=== PATIENT | female | born 1940 | race Caucasian/White ===

== ENCOUNTER 2019-12-20 12:58 | Inpatient (IN) | payer BC ==
[~2019-12-20] VITALS: Ht 157.5 cm; Wt 54.9 kg
[2019-12-20 14:08] LABS: BASOPHILS # (AUTO) 0.1 K/uL (0.0-8.0); BASOPHILS % (AUTO) 1.1 % (0.0-2.0); EOSINOPHILS # (AUTO) 0.1 K/uL (0.0-0.7); EOSINOPHILS % (AUTO) 0.6 % (0.0-7.0); HEMATOCRIT 45.7 % (31.2-41.9); HEMOGLOBIN 15.3 g/dL (10.9-14.3); LYMPHOCYTES # (AUTO) 2.2 K/uL (20.0-40.0); LYMPHOCYTES % (AUTO) 25.7 % (20.5-51.5); MEAN CORPUSCULAR HEMOGLOBIN 27.7 uug (24.7-32.8); MEAN CORPUSCULAR HGB CONC 34 g/dL (32.3-35.6); MEAN CORPUSCULAR VOLUME 82.5 fL (75.5-95.3); MONOCYTES # (AUTO) 0.6 K/uL (2.0-10.0); MONOCYTES % (AUTO) 7.6 % (0.0-11.0); NEUTROPHILS # (AUTO) 5.5 K/uL (1.8-8.9); PLATELET COUNT (AUTO) 257 K/uL (179-408); RED BLOOD CELL COUNT(AUTO) 5.54 MIL/uL (3.63-4.92); WHITE BLOOD COUNT (AUTO) 8.4 K/uL (3.8-11.8)
[2019-12-20 14:10] LABS: *BILIRUBIN,URIN NEGATIVE (NEGATIVE); *BLOOD, URINE 1+ (NEGATIVE); *CLARITY,URINE CLOUDY (CLEAR); *COLOR,URINE YELLOW (YELLOW); *KETONES,URINE NEGATIVE (NEGATIVE); *UROBILINOGEN,URINE 0.2 E.U./dl (NORMAL); LEUKOCYTE ESTERASE ,URINE 3+ (NEGATIVE); NITRITE, URINE POSITIVE (NEGATIVE); UGLUCOSE NEGATIVE (NEGATIVE)
[2019-12-20 14:19] LABS: CARBON DIOXIDE 27 mmol/L (21-32); CHLORIDE 101 mmol/L (98-107); GLUCOSE 92 mg/dL (74-106); POTASSIUM 3.7 mmol/L (3.5-5.1); UREA NITROGEN, BLOOD 18 mg/dL (7-18)
[2019-12-20 14:22] LABS: ETHANOL 3 MG/DL (0-0)
[2019-12-20 14:23] LABS: BACTERIA,URINE 4+ /HPF (NONE SEEN); SQUAMOUS EPITHELIAL CELL,UR FEW /HPF (NONE SEEN); WBC,URINE 80-100 /HPF (0-3)
[2019-12-20 14:25] LABS: ACETAMINOPHEN < 10.0 ug/mL (10-30); ALANINE AMINOTRANSFERASE 53 U/L (14-59); ALKALINE PHOSPHATASE 98 U/L (50-136); ASPARTATE AMINOTRANSFERASE 39 U/L (15-37); BILIRUBIN,DIRECT 0.2 mg/dL (0.0-0.2); BILIRUBIN,TOTAL 0.8 mg/dL (0.2-1.0); TOTAL PROTEIN, SERUM 7.5 g/dL (6.4-8.2)
[2019-12-20 15:18] LABS: THYROID STIMULATING HORMONE 0.576 mIU/mL (0.358-3.740)
[2019-12-20] MEDS ORDERED: QUETIAPINE FUMARATE 25 MG TABLET PO PRN (18:45)
[2019-12-20] MEDS ORDERED: ZIPRASIDONE MESYLATE 20 MG VIAL IM PRN (18:47)
[2019-12-20] MEDS ORDERED: MORPHINE SULFATE 2 MG/1 ML DISP.SYRIN IV PRN (19:00)
[2019-12-20] MEDS ORDERED: ONDANSETRON 4 MG/2 ML VIAL IV PRN (19:00)
[2019-12-20] MEDS ORDERED: ACETAMINOPHEN 325 MG TABLET PO PRN (19:00)
[2019-12-20] MEDS ORDERED: LORAZEPAM 2 MG/1 ML VIAL IV PRN (20:15)
[2019-12-20 20:30] VITALS: BP 135/63
[2019-12-20] MEDS: PREGABALIN 25 MG CAPSULE PO SCH (20:45)
[2019-12-20] MEDS ORDERED: ATORVASTATIN 40 MG TABLET PO SCH (21:00)
[2019-12-20] MEDS ORDERED: CEFTRIAXONE /D5W 50ML IVPB **ER PYXIS IV ONE (21:35)
[2019-12-20] MEDS: CEFTRIAXONE 1 G in IV DEXTROSE 5% 50 ML IV SCH (21:41)
[2019-12-20 22:37] LABS: *AMPHETAMINE, URINE NEGATIVE (NEGATIVE); *BARBITURATE, URINE NEGATIVE (NEGATIVE); *CANNABINOID, URINE NEGATIVE (NEGATIVE); *COCCAINE, URINE NEGATIVE (NEGATIVE); *OPIATE, URINE NEGATIVE (NEGATIVE); *PHENCYCLIDINE SCREEN,URINE NEGATIVE (NEGATIVE)
[2019-12-21 04:00] VITALS: BP 135/66
[2019-12-21 06:27] LABS: BASOPHILS % (AUTO) 0.8 % (0.0-2.0); EOSINOPHILS # (AUTO) 0.1 K/uL (0.0-0.7); EOSINOPHILS % (AUTO) 2.3 % (0.0-7.0); HEMATOCRIT 42.6 % (31.2-41.9); HEMOGLOBIN 14.2 g/dL (10.9-14.3); LYMPHOCYTES # (AUTO) 1.9 K/uL (20.0-40.0); MEAN CORPUSCULAR HEMOGLOBIN 27.7 uug (24.7-32.8); MEAN CORPUSCULAR HGB CONC 33 g/dL (32.3-35.6); MEAN CORPUSCULAR VOLUME 83.1 fL (75.5-95.3); MONOCYTES # (AUTO) 0.5 K/uL (2.0-10.0); MONOCYTES % (AUTO) 8.7 % (0.0-11.0); NEUTROPHILS # (AUTO) 3.2 K/uL (1.8-8.9); NEUTROPHILS % (AUTO) 55.2 % (38.5-71.5); PLATELET COUNT (AUTO) 260 K/uL (179-408); RED BLOOD CELL COUNT(AUTO) 5.13 MIL/uL (3.63-4.92); WHITE BLOOD COUNT (AUTO) 5.7 K/uL (3.8-11.8)
[2019-12-21 06:37] LABS: BILIRUBIN,TOTAL 0.7 mg/dL (0.2-1.0); PHOSPHOROUS 3.7 mg/dL (2.5-4.9); TOTAL PROTEIN, SERUM 6.7 g/dL (6.4-8.2)
[2019-12-21 06:46] LABS: THYROID STIMULATING HORMONE 0.635 mIU/mL (0.358-3.740)
[2019-12-21 07:46] VITALS: BP 121/50
[2019-12-21] MEDS: PANTOPRAZOLE SODIUM 40 MG TABLET.DR PO SCH (07:54)
[2019-12-21] MEDS: ASPIRIN EC 81 MG TABLET.DR PO SCH (08:00)
[2019-12-21] MEDS: CHOLECALCIFEROL 1,000 UNIT TABLET PO SCH (08:00)
[2019-12-21] MEDS: NYSTATIN POWDER 15 GM BOTTLE TP SCH ×2 (08:00→17:21)
[2019-12-21] MEDS: METOPROLOL TARTRATE 25 MG TABLET PO SCH ×2 (08:00→17:20)
[2019-12-21] MEDS: PREGABALIN 25 MG CAPSULE PO SCH ×2 (08:41→17:20)
[2019-12-21 11:44] VITALS: BP 107/56
[2019-12-21 16:46] VITALS: BP 149/80
[2019-12-21] MEDS: TRAZODONE 50 MG TABLET PO SCH (17:03)
[2019-12-21 21:14] VITALS: BP 109/52
[2019-12-21] MEDS: ATORVASTATIN 20 MG TABLET PO SCH (22:02)
[2019-12-21] MEDS: CEFTRIAXONE 1 G in IV DEXTROSE 5% 50 ML IV SCH (23:41)
[2019-12-22 04:00] VITALS: BP 119/58
[2019-12-22] MEDS: PANTOPRAZOLE SODIUM 40 MG TABLET.DR PO SCH (06:32)
[2019-12-22] MEDS: ASPIRIN EC 81 MG TABLET.DR PO SCH (08:27)
[2019-12-22] MEDS: CHOLECALCIFEROL 1,000 UNIT TABLET PO SCH (08:27)
[2019-12-22] MEDS: METOPROLOL TARTRATE 25 MG TABLET PO SCH ×2 (08:27→17:10)
[2019-12-22] MEDS: NYSTATIN POWDER 15 GM BOTTLE TP SCH ×2 (08:30→17:02)
[2019-12-22] MEDS: PREGABALIN 25 MG CAPSULE PO SCH ×2 (10:18→17:03)
[2019-12-22] MEDS: TRAZODONE 50 MG TABLET PO SCH (17:06)
[2019-12-22] MEDS: CEphaleXIN 500 MG CAPSULE PO SCH ×2 (18:29→22:36)
[2019-12-22 19:35] VITALS: BP 121/63
[2019-12-22] MEDS: ATORVASTATIN 20 MG TABLET PO SCH (20:54)
[2019-12-22] MEDS: ACYCLOVIR 200 MG CAPSULE PO SCH (20:54)
[2019-12-23 04:00] VITALS: BP 126/67
[2019-12-23] MEDS: CEphaleXIN 500 MG CAPSULE PO SCH ×3 (05:21→22:46)
[2019-12-23] MEDS: PANTOPRAZOLE SODIUM 40 MG TABLET.DR PO SCH (06:40)
[2019-12-23] MEDS: ACYCLOVIR 200 MG CAPSULE PO SCH ×5 (06:40→20:23)
[2019-12-23 07:12] LABS: BASOPHILS # (AUTO) 0.1 K/uL (0.0-8.0); BASOPHILS % (AUTO) 0.9 % (0.0-2.0); EOSINOPHILS # (AUTO) 0.1 K/uL (0.0-0.7); EOSINOPHILS % (AUTO) 2.4 % (0.0-7.0); HEMATOCRIT 44.3 % (31.2-41.9); HEMOGLOBIN 14.7 g/dL (10.9-14.3); LYMPHOCYTES # (AUTO) 2.2 K/uL (20.0-40.0); LYMPHOCYTES % (AUTO) 36.4 % (20.5-51.5); MEAN CORPUSCULAR HGB CONC 33 g/dL (32.3-35.6); MEAN CORPUSCULAR VOLUME 84.4 fL (75.5-95.3); MONOCYTES # (AUTO) 0.4 K/uL (2.0-10.0); MONOCYTES % (AUTO) 6.8 % (0.0-11.0); NEUTROPHILS # (AUTO) 3.3 K/uL (1.8-8.9); NEUTROPHILS % (AUTO) 53.5 % (38.5-71.5); PLATELET COUNT (AUTO) 256 K/uL (179-408); RED BLOOD CELL COUNT(AUTO) 5.26 MIL/uL (3.63-4.92); WHITE BLOOD COUNT (AUTO) 6.1 K/uL (3.8-11.8)
[2019-12-23 07:20] LABS: MAGNESIUM 1.8 mg/dL (1.8-2.4); PHOSPHOROUS 3.3 mg/dL (2.5-4.9); POTASSIUM 4.1 mmol/L (3.5-5.1)
[2019-12-23 07:30] VITALS: BP 133/64
[2019-12-23] MEDS: ASPIRIN EC 81 MG TABLET.DR PO SCH (08:14)
[2019-12-23] MEDS: PREGABALIN 25 MG CAPSULE PO SCH ×2 (08:14→16:58)
[2019-12-23] MEDS: CHOLECALCIFEROL 1,000 UNIT TABLET PO SCH (08:14)
[2019-12-23] MEDS: NYSTATIN POWDER 15 GM BOTTLE TP SCH ×2 (08:15→17:15)
[2019-12-23] MEDS: METOPROLOL TARTRATE 25 MG TABLET PO SCH ×2 (08:24→16:58)
[2019-12-23] MEDS: MEMANTINE HCL 5 MG TABLET PO SCH ×2 (09:55→20:13)
[2019-12-23] MEDS: QUETIAPINE FUMARATE 25 MG TABLET PO SCH ×2 (09:56→20:13)
[2019-12-23 15:46] VITALS: BP 147/73
[2019-12-23] MEDS: TRAZODONE 50 MG TABLET PO SCH (17:29)
[2019-12-23 20:00] VITALS: BP 133/59
[2019-12-23] MEDS: ATORVASTATIN 20 MG TABLET PO SCH (20:13)
[2019-12-24 04:00] VITALS: BP 116/77
[2019-12-24] MEDS: CEphaleXIN 500 MG CAPSULE PO SCH ×2 (05:30→15:15)
[2019-12-24] MEDS: ACYCLOVIR 200 MG CAPSULE PO SCH ×3 (05:36→15:15)
[2019-12-24] MEDS: PANTOPRAZOLE SODIUM 40 MG TABLET.DR PO SCH (06:16)
[2019-12-24 07:43] VITALS: BP 116/52
[2019-12-24] MEDS: CHOLECALCIFEROL 1,000 UNIT TABLET PO SCH (09:03)
[2019-12-24] MEDS: MEMANTINE HCL 5 MG TABLET PO SCH (09:05)
[2019-12-24] MEDS: PREGABALIN 25 MG CAPSULE PO SCH (09:05)
[2019-12-24] MEDS: QUETIAPINE FUMARATE 25 MG TABLET PO SCH (09:05)
[2019-12-24] MEDS: ASPIRIN EC 81 MG TABLET.DR PO SCH (09:05)
[2019-12-24] MEDS: METOPROLOL TARTRATE 25 MG TABLET PO SCH (09:06)
[2019-12-24] MEDS: NYSTATIN POWDER 15 GM BOTTLE TP SCH (09:06)
[2019-12-24 12:00] VITALS: BP 118/63
[2019-12-24 15:26] VITALS: BP 136/64
== END 2019-12-24 16:50 | DRG 689 ==
LOC: ER 12:58 → MEDSURG3 20:02 → TELE3 12-21 02:31 → MEDSURG3 12-21 10:30
PROVIDERS: ADMIT Internal Medicine; ATTEND Internal Medicine
DX: N39.0 Urinary tract infection, site not specified (principal); G92 Toxic encephalopathy; F03.91 Unspecified dementia, unspecified severity, with behavioral disturbance; I25.2 Old myocardial infarction; I25.10 Atherosclerotic heart disease of native coronary artery without angina pectoris; M81.0 Age-related osteoporosis without current pathological fracture; M19.90 Unspecified osteoarthritis, unspecified site; Z87.891 Personal history of nicotine dependence; R73.03 Prediabetes; B02.9 Zoster without complications; E78.5 Hyperlipidemia, unspecified; F29 Unspecified psychosis not due to a substance or known physiological condition; I10 Essential (primary) hypertension; Z79.899 Other long term (current) drug therapy; Z79.82 Long term (current) use of aspirin; T74.91XD Unspecified adult maltreatment, confirmed, subsequent encounter; Y07.59 Other non-family member, perpetrator of maltreatment and neglect; B96.1 Klebsiella pneumoniae [K. pneumoniae] as the cause of diseases classified elsewhere
CPT/HCPCS: 36415; 70030-TC; 70450; 71045; 80307; 83550; 83605; 83735; 84100; 84443; 85025; 85730; 87040; 87077; 87086; 93005; A4663; G0378; G0480; G0480-TC; J0696; J2060; J7040; J7060

== ENCOUNTER 2019-12-24 17:33 | Inpatient (IN) | payer BC, OTHER ==
[~2019-12-24] VITALS: Ht 157.5 cm; Wt 54.4 kg
[2019-12-24 17:15] VITALS: BP 129/65
[2019-12-24] MEDS ORDERED: MAGNESIUM HYDROXIDE 30 ML LIQUID UDC PO PRN (17:45)
[2019-12-24] MEDS ORDERED: BLOOD SUGAR DIAGNOSTIC 1 EACH STRIP VI ONE (17:45)
[2019-12-24] MEDS ORDERED: MAG HYDROX/AL HYDROX/SIMETH 30 ML LIQUID UDC PO PRN (17:45)
[2019-12-24] MEDS ORDERED: LORAZEPAM 0.5 MG TABLET PO PRN (17:45)
[2019-12-24] MEDS ORDERED: ACETAMINOPHEN 325 MG TABLET PO PRN (17:45)
--- NOTE | 2019-12-24 18:22 | NUR ---
Admission Note: Patient admitted to MHU room 140A on a 5150 hold for GD from [place]. Patient accompanied on unit sitting in a wheelchair by RN and STAMPING BENCH DIE MAKER. Patient was provided with orientation to unit rules and policies, oriented to her assigned room, able to verbalize understanding. Patient given patient's rights handbook and admission packet. Given 5150 advisement. This patient is cooperative with the admission process. Skin assessment completed by RN. Patient noted with red rash on her right buttocks from diagnosis of Shingles prior to admission. Patient is refusing photograph to be taken of the rash. Upon akvj-tj-ekao assessment, patient is anxious, but is cooperative, redirectable, and pleasant with staff. Patient denies SI/HI, denies AH/VH. She states that she has no previous psychiatric history and has had no inpatient psychiatric admissions. Patient denies current alcohol use or history of alcohol abuse. denies history of substance abuse and denies history of smoking. Patient is forgetful and requires frequent redirection and reality orientation to her surroundings. Patient provided with reality orientation about reason for admission. Educated about impulse control and communicating her needs appropriately to staff, she is able to verbalize understanding.
[2019-12-24 20:25] VITALS: BP 132/66
[2019-12-24] MEDS: ATORVASTATIN 40 MG TABLET PO SCH (21:00)
[2019-12-24] MEDS: ACYCLOVIR 200 MG CAPSULE PO SCH (21:00)
[2019-12-25] MEDS: ACYCLOVIR 200 MG CAPSULE PO SCH ×5 (05:53→21:06)
[2019-12-25 07:30] VITALS: BP 109/53
[2019-12-25] MEDS: ASPIRIN EC 81 MG TABLET.DR PO SCH (08:46)
[2019-12-25] MEDS: CHOLECALCIFEROL 1,000 UNIT TABLET PO SCH (08:47)
[2019-12-25] MEDS: METOPROLOL TARTRATE 25 MG TABLET PO SCH ×2 (08:47→16:56)
[2019-12-25] MEDS: MEMANTINE HCL 10 MG TABLET PO SCH ×2 (08:48→21:06)
[2019-12-25] MEDS ORDERED: PREGABALIN 100 MG CAPSULE PO SCH (09:00)
[2019-12-25] MEDS ORDERED: Medication Not On Formulary EA (Atorvastatin Calcium (Lipitor) 1 TAB) PO SCH (09:00)
[2019-12-25] MEDS ORDERED: PREGABALIN 25 MG CAPSULE PO SCH (09:00)
[2019-12-25] MEDS: NYSTATIN POWDER 15 GM BOTTLE TP SCH ×2 (09:30→16:57)
[2019-12-25] MEDS: PREGABALIN 25 MG CAPSULE PO SCH ×2 (11:58→16:55)
--- NOTE | 2019-12-25 15:24 | NUR ---
Initial Discharge Plan: Pt currently resides at unsecured SNF located at [address] [place] [address]; [phone].Per pts health provider and conservator [Calvin Ledbetter; [phone]], pts needs require a locked facility due to prior elopement. Pts conservator prefers to identify a facility that is to his comfort and is working with SW regarding appropriate discharge planning. SW will continue to work with pt, pts conservator, and MD to form a safe and proper discharge plan for pt.
--- NOTE | 2019-12-25 15:26 | NUR ---
Family Contact: SW spoke with pts conservator [Calvin Vicentecharissa; [phone]] regarding placement for pt. Pts nicki reports that he has been researching locked custodial facilities for pt and will inform SW as soon as he finds one that is to his comfort. SW encouraged pts conservator to identify a facility soon. LAKSHMI will follow up with pts conservator for facility information to begin the referral process.
[2019-12-25 16:00] VITALS: BP 145/80
--- NOTE | 2019-12-25 17:03 | NUR ---
Social Work Family Contact Note: provided the following locked SNF referrals to pts conservator Calvin Ledbetter: [facility] [address] [place] [address]; , [facility] [address] [place] [address] ; , [facility] [address] [place] [address] ; , [facility] [address] [place] [address]; , [facility] [address] [place] [address]; , and [facility] [address] [place] [address]; , to assist in his review of placement options for pt.
--- NOTE | 2019-12-25 17:20 | NUR ---
Gps/Senior Medical Billing Specialist -Had been cooperative with staff, attends and participates in her group therapy, plesant affect, interacting fairly well with her selected peers. Episodes of some confusion earlier this pm, requesting to call her mother and father, , unable to figure out their number, reality reorientation provided. Had episodes of bladder incontinence, r/t urgency , offered to wear diaper.
--- NOTE | 2019-12-25 20:00 | NUR ---
Patient received into care in recreation room sitting up in chair watching television with other patients. Patient has no complaints of pain or discomfort at this time and there are no s/s of acute distress or discomfort noted/observed by nurse. All safety and fall precaution measures are in place. Will continue to monitor and observe.
[2019-12-25 20:12] VITALS: BP 142/62
[2019-12-25] MEDS: ATORVASTATIN 40 MG TABLET PO SCH (21:07)
[2019-12-25] MEDS: TRAZODONE 50 MG TABLET PO SCH (21:07)
[2019-12-25] MEDS: QUETIAPINE FUMARATE 25 MG TABLET PO SCH (21:08)
[2019-12-26] MEDS: ACYCLOVIR 200 MG CAPSULE PO SCH ×5 (05:50→20:17)
--- NOTE | 2019-12-26 06:59 | NUR ---
Patient was compliant with all aspects of care and slept 9h this shift. All safety and fall precaution measures remain in place. Will provide report to AM nurse.
[2019-12-26 07:30] VITALS: BP 139/57
[2019-12-26] MEDS: MEMANTINE HCL 10 MG TABLET PO SCH ×2 (08:50→20:16)
[2019-12-26] MEDS: QUETIAPINE FUMARATE 25 MG TABLET PO SCH ×2 (08:50→20:16)
[2019-12-26] MEDS: METOPROLOL TARTRATE 25 MG TABLET PO SCH ×2 (08:50→16:51)
[2019-12-26] MEDS: CHOLECALCIFEROL 1,000 UNIT TABLET PO SCH (08:50)
[2019-12-26] MEDS: ASPIRIN EC 81 MG TABLET.DR PO SCH (08:50)
[2019-12-26] MEDS: PREGABALIN 25 MG CAPSULE PO SCH ×2 (08:50→16:50)
[2019-12-26] MEDS: NYSTATIN POWDER 15 GM BOTTLE TP SCH ×2 (08:52→17:21)
--- NOTE | 2019-12-26 09:18 | NUR ---
Gps/Mill Turner- Shamar(brother in-law ) in to vegetable picker patient, and to transport pt. to home Reviewed medications/prescriptions, diet, safety, skin care , reviewed and emphasized, also needed to follow up with his PMD, verbalized understanding. All belongings given back to patient, discharged in good spirit, with no new c/o offered. Addendum: 12/26/19 at 0917 by BULMARO ENCINAS LVN Gps/Mill Turner- Error in charting, charted on a wrong patient
[2019-12-26 11:58] VITALS: BP 196/93
--- NOTE | 2019-12-26 11:58 | NUR ---
Social Work Discharge Note Spoke with Calvin, probate conservator ([phone]) and reiterated that he needs to work with discharge planning as she is getting close to stable. Advised him that he would be responsible for payment when the insurance no longer authorizes her stay. He acknowledged that he understood. Courtney Morales METAL WINDOW FRAME MAKER faxing to all locked facilities that were discussed with him now. Refer to note of facilities that have received faxed packets from Courtney.Calvin will also call Larry Saunders ( [phone]) from [facility].
--- NOTE | 2019-12-26 12:01 | NUR ---
Charted on a wrong patient -actual v/s T98.2 oral, b/p 106/50 HR 78 02 sat 94% Addendum: 12/26/19 at 1203 by BULMARO ENCINAS LVN Amended: Links added.
[2019-12-26 12:03] VITALS: BP 139/57
--- NOTE | 2019-12-26 12:20 | NUR ---
Gps/Operation Manager- Patient complained to Dr Banks she had been having cough, sore throat , Clarrified with patient b/p 106/50 HR 78 02 sat 94% oral temp 98.2 Patient denies sore throat, no coughing noted. , claimed she had been having headaches, tylenol 650 mg po was administered adequate fluid intake. Continue to monitor complaints.
--- NOTE | 2019-12-26 12:27 | NUR ---
Social Work Discharge Plan Update: LAKSHMI faxed admissions referrals to the following facilities approved by pts conservator, Calvin Ledbetter ([phone]): [facility] [fax: [phone]], [facility] [fax: [phone]], [facility] [[phone]], and [facility] [fax: [phone]].
--- NOTE | 2019-12-26 15:47 | NUR ---
Gps/Public Message Service Supervisor- Patient very confused, noted she does not know where she's at. Reoriented to time place, she thinks she is in some kind a Hotel . Patient claimed " no wonder why i dont have my stuff" . Reoriented, encouraged participations in her group therapy, denies any headache at this time, denies any sore throat , no coughing noted. Continue to monitor behavior.
[2019-12-26 16:00] VITALS: BP 123/68
--- NOTE | 2019-12-26 18:36 | NUR ---
Gps/Bods Developer-Unable to locate patient, not in her room nor the bathroom nor activity room, found patient asleep in other patient's room asleep. Awakened pt, reoriented, to her room, patient claimed she cannot find her room . Patient redirected to her room .
[2019-12-26] MEDS: ATORVASTATIN 40 MG TABLET PO SCH (20:17)
[2019-12-26] MEDS: TRAZODONE 50 MG TABLET PO SCH (20:17)
[2019-12-26 20:30] VITALS: BP 116/53
[2019-12-27] MEDS: ACYCLOVIR 200 MG CAPSULE PO SCH ×5 (06:10→21:00)
[2019-12-27 07:30] VITALS: BP 111/65
[2019-12-27] MEDS: QUETIAPINE FUMARATE 25 MG TABLET PO SCH ×2 (08:45→20:54)
[2019-12-27] MEDS: MEMANTINE HCL 10 MG TABLET PO SCH ×2 (08:45→20:55)
[2019-12-27] MEDS: METOPROLOL TARTRATE 25 MG TABLET PO SCH ×2 (08:46→17:14)
[2019-12-27] MEDS: CHOLECALCIFEROL 1,000 UNIT TABLET PO SCH (08:46)
[2019-12-27] MEDS: PREGABALIN 25 MG CAPSULE PO SCH ×2 (08:46→17:12)
[2019-12-27] MEDS: ASPIRIN EC 81 MG TABLET.DR PO SCH (08:46)
[2019-12-27] MEDS: NYSTATIN POWDER 15 GM BOTTLE TP SCH ×2 (08:47→17:14)
[2019-12-27 16:33] VITALS: BP 136/61
[2019-12-27 20:15] VITALS: BP 111/49
[2019-12-27] MEDS: TRAZODONE 50 MG TABLET PO SCH (20:51)
[2019-12-27] MEDS: ATORVASTATIN 40 MG TABLET PO SCH (20:53)
--- NOTE | 2019-12-28 04:43 | NUR ---
GPS: Pt. A/Maria Teresa2, on 14/days hold. confuse with periods of poor concentration. Mood changes rapidly from happy to sad and irritation within few mins. Pt cooperative with all routine meds and care. On continue antiviral med per skin rashes on right buttocks from shingles from admission, no s/s of adverse effect at this time. Pt. asleep with even breathing and easily abusable. Will continue monitor.
[2019-12-28] MEDS: ACYCLOVIR 200 MG CAPSULE PO SCH ×5 (06:08→20:05)
--- NOTE | 2019-12-28 06:54 | NUR ---
Pt. slept 7.45min during shift and no c/o pain. Cooperative with routine medications.
[2019-12-28 07:30] VITALS: BP 113/49
[2019-12-28] MEDS: MEMANTINE HCL 10 MG TABLET PO SCH ×2 (08:38→20:05)
[2019-12-28] MEDS: METOPROLOL TARTRATE 25 MG TABLET PO SCH ×2 (08:38→17:36)
[2019-12-28] MEDS: CHOLECALCIFEROL 1,000 UNIT TABLET PO SCH (08:38)
[2019-12-28] MEDS: QUETIAPINE FUMARATE 25 MG TABLET PO SCH ×2 (08:38→20:05)
[2019-12-28] MEDS: ASPIRIN EC 81 MG TABLET.DR PO SCH (08:38)
[2019-12-28] MEDS: PREGABALIN 25 MG CAPSULE PO SCH ×2 (08:38→17:35)
[2019-12-28] MEDS: NYSTATIN POWDER 15 GM BOTTLE TP SCH ×2 (08:39→17:36)
[2019-12-28 17:03] VITALS: BP 152/70
[2019-12-28] MEDS: TRAZODONE 50 MG TABLET PO SCH (20:05)
[2019-12-28] MEDS: ATORVASTATIN 40 MG TABLET PO SCH (20:05)
[2019-12-28 20:58] VITALS: BP 127/57
[2019-12-29] MEDS: ACYCLOVIR 200 MG CAPSULE PO SCH ×4 (06:04→17:07)
[2019-12-29 07:30] VITALS: BP 105/48
[2019-12-29] MEDS: PREGABALIN 25 MG CAPSULE PO SCH ×2 (08:42→17:07)
[2019-12-29] MEDS: CHOLECALCIFEROL 1,000 UNIT TABLET PO SCH (08:42)
[2019-12-29] MEDS: QUETIAPINE FUMARATE 25 MG TABLET PO SCH ×2 (08:42→20:12)
[2019-12-29] MEDS: MEMANTINE HCL 10 MG TABLET PO SCH ×2 (08:42→20:13)
[2019-12-29] MEDS: ASPIRIN EC 81 MG TABLET.DR PO SCH (08:42)
[2019-12-29] MEDS: NYSTATIN POWDER 15 GM BOTTLE TP SCH ×2 (08:42→17:08)
[2019-12-29] MEDS: METOPROLOL TARTRATE 25 MG TABLET PO SCH ×2 (08:49→17:08)
[2019-12-29 15:10] VITALS: BP 117/47
--- NOTE | 2019-12-29 17:42 | NUR ---
Refinery Process Engineer Discharge Plan Update: SW received a call from Israel [ ], manager budget of [facility] [[address] [place] [address]], who states that he was contacted by pts conservator, Calvin Ledbetter, and is ready to accept pt at discharge.
--- NOTE | 2019-12-29 17:44 | NUR ---
Social Work Family Contact: SW called pts conservator Calvin Ledbetter to inform him that Mo from [facility] has accepted pt and is ready to receive pt at discharge. Pts conservator states he is not sure he is satisfied with [facility] and wants to continue exploring other placement options for pt.
[2019-12-29] MEDS: TRAZODONE 50 MG TABLET PO SCH (20:12)
[2019-12-29] MEDS: ATORVASTATIN 40 MG TABLET PO SCH (20:13)
[2019-12-29 20:34] VITALS: BP 138/60
[2019-12-30 07:30] VITALS: BP 143/62
[2019-12-30] MEDS: PREGABALIN 25 MG CAPSULE PO SCH ×2 (08:49→16:47)
[2019-12-30] MEDS: MEMANTINE HCL 10 MG TABLET PO SCH ×2 (08:49→21:00)
[2019-12-30] MEDS: ASPIRIN EC 81 MG TABLET.DR PO SCH (08:49)
[2019-12-30] MEDS: CHOLECALCIFEROL 1,000 UNIT TABLET PO SCH (08:49)
[2019-12-30] MEDS: NYSTATIN POWDER 15 GM BOTTLE TP SCH ×2 (08:49→16:48)
[2019-12-30] MEDS: QUETIAPINE FUMARATE 25 MG TABLET PO SCH ×2 (08:49→20:59)
[2019-12-30] MEDS: METOPROLOL TARTRATE 25 MG TABLET PO SCH ×2 (08:51→16:48)
--- NOTE | 2019-12-30 09:06 | NUR ---
Social Work Family Contact: traffic worker contacted patient's conservator Calvin ([phone]) and left a voicemail in regard to patient's discharge.
--- NOTE | 2019-12-30 09:42 | NUR ---
Social Work Coordination of Care: sanitation worker cleaning machinery faxed patient's clinicals to Ashley michaels ([phone]) who stated that patient is not accepted due to behavioral issues.
--- NOTE | 2019-12-30 11:34 | NUR ---
Social Work UR Note: poultry farmworker faxed patient's H & P psychiatric notes and progress notes to Ivette director case ([phone]) ([phone]). Authorization: [id number].
--- NOTE | 2019-12-30 14:41 | NUR ---
Social Work Individual Therapy: curtain worker met with patient for brief counseling to address patient's marked impairment in delusional thought. Patient was able to have a meaningful conversation with this sports writer. Patient stated that she has not been experiencing visual/auditory hallucination. Patient expressed that she is "feeling better". This sports writer actively listened and provided support.
--- NOTE | 2019-12-30 14:49 | NUR ---
Social Work Family Contact: cotton farmworker contacted patient's conservator Calvin ([phone]) and discussed patient's discharge plan for tomorrow 12/02/2019. Per Calvin, he is agreeable for patient to be discharged tomorrow to [facility].
--- NOTE | 2019-12-30 14:51 | NUR ---
Social Work Coordination of Care: size worker contacted [facility] and spoke with the dietary assistant Mo and sent ([phone]) patient's H & P psychiatric notes and progress notes.
[2019-12-30 16:00] VITALS: BP 139/68
[2019-12-30 20:22] VITALS: BP 119/55
[2019-12-30] MEDS: TRAZODONE 50 MG TABLET PO SCH (20:59)
[2019-12-30] MEDS: ATORVASTATIN 40 MG TABLET PO SCH (21:00)
--- NOTE | 2019-12-30 21:46 | NUR ---
GPS: Pt.asleep but arose to light touch and name. noted confuse and incoherent speech. Pt was redirected and encouraged to vent out feelings. Compliant with meds, cooperative with staff and care. No agitation or delusional noted at this time. will continue face to face monitor q15/mlns
--- NOTE | 2019-12-31 06:35 | NUR ---
Pt slept up to 9/hrs during shift and still in bed. frequent 15min round done, breathing even and no s/s of acute distress, or abnormal.
[2019-12-31 07:30] VITALS: BP 115/50
[2019-12-31] MEDS: QUETIAPINE FUMARATE 25 MG TABLET PO SCH ×2 (08:22→20:41)
[2019-12-31] MEDS: METOPROLOL TARTRATE 25 MG TABLET PO SCH ×2 (08:22→16:54)
[2019-12-31] MEDS: CHOLECALCIFEROL 1,000 UNIT TABLET PO SCH (08:22)
[2019-12-31] MEDS: PREGABALIN 25 MG CAPSULE PO SCH ×2 (08:22→16:49)
[2019-12-31] MEDS: MEMANTINE HCL 10 MG TABLET PO SCH ×2 (08:22→20:40)
[2019-12-31] MEDS: ASPIRIN EC 81 MG TABLET.DR PO SCH (08:22)
[2019-12-31] MEDS: NYSTATIN POWDER 15 GM BOTTLE TP SCH ×2 (08:23→16:54)
--- NOTE | 2019-12-31 09:33 | NUR ---
Social Work Family Contact: flour worker spoke with Calvin caceres ([phone]) who stated that the [facility] is not accepting patient due to requesting COVID-19 test. This rfp writer and Dr. Banks explained that patient does not meet the criteria for COVID-19 and that social media executive sent the screening to the orthodontist small business owner.
--- NOTE | 2019-12-31 09:37 | NUR ---
Social Work PC Hearing Notification: charhouse worker contacted patient's conservator Calvin, ([phone]) and notified patient's probable cause of hearing today.
--- NOTE | 2019-12-31 09:43 | NUR ---
Social Work Coordination of Care: coal chute worker provided resources of [facility] ([phone]) and Larry from [facility] ([phone]) to Calvin caceres ([phone]). This verse writer also contacted Oralia and Larry. This verse writer left Larry a voicemail to call back.
--- NOTE | 2019-12-31 11:47 | NUR ---
Social Work UR Note: elevator worker faxed patient's H & P psychiatric notes and progress notes to Estrellita case management director ([phone]) ([phone]). Authorization: [id number]. Patient's corrections caseworker changed from Ivette to Estrellita. This justowriter operator received a voicemail and Estrellita stated that patient's last day of authorization will be 12/30. This justowriter operator contacted Estrellita two times ([phone]) and left a voicemail that we would need to extend patient's stay at the hospital due to placement issues. This justowriter operator also left her cellphone number and is waiting for Estrellita to contact back. This justowriter operator sent patient's H & P psychiatric notes and progress notes.
--- NOTE | 2019-12-31 12:16 | NUR ---
Social Work Family Contact: area field worker contacted patient's conservator Calvin ([phone]) and left a voicemail that [facility] ([phone]) has been contacted Calvin to help with assisted living.
--- NOTE | 2019-12-31 14:43 | NUR ---
Social Work Individual Therapy: optical worker met with patient for brief counseling to address patient's marked impairment in delusional thought. Patient was able to have a meaningful conversation with this leader writer. Patient is pleasant and was able to have a conversation about her . Patient denies auditory/visual hallucination.
--- NOTE | 2019-12-31 15:16 | NUR ---
Social Work UR Note: This marketing writer contacted Estrellita case maker ([phone]) who stated that she will authorize patient's stay until Sunday01/02/20.
[2019-12-31 16:00] VITALS: BP 130/69
[2019-12-31] MEDS: TRAZODONE 50 MG TABLET PO SCH (20:40)
[2019-12-31] MEDS: ATORVASTATIN 40 MG TABLET PO SCH (20:41)
[2019-12-31 20:54] VITALS: BP 122/54
--- NOTE | 2019-12-31 23:24 | NUR ---
PATIENT RECEIVED IN BED AWAKE. PATIENT ALERT/ORIENTED X1 WITH CONFUSION, FORGETFUL AND DISORIENTED. PATIENT IS EASILY IRRITABLE, IS REDIRECTABLE. BED IN LOWEST POSITION, BED LOCKED, AND ALARM ON WHILE IN BED. PATIENT IN NO APPARENT DISTRESS WILL CONTINUE TO MONITOR.
[2020-01-01 07:30] VITALS: BP 114/60
[2020-01-01] MEDS: ASPIRIN EC 81 MG TABLET.DR PO SCH (08:41)
[2020-01-01] MEDS: PREGABALIN 25 MG CAPSULE PO SCH (08:41)
[2020-01-01] MEDS: CHOLECALCIFEROL 1,000 UNIT TABLET PO SCH (08:41)
[2020-01-01] MEDS: MEMANTINE HCL 10 MG TABLET PO SCH (08:41)
[2020-01-01] MEDS: QUETIAPINE FUMARATE 25 MG TABLET PO SCH (08:41)
[2020-01-01 08:43] VITALS: BP 114/60
[2020-01-01] MEDS: METOPROLOL TARTRATE 25 MG TABLET PO SCH (08:43)
[2020-01-01] MEDS: NYSTATIN POWDER 15 GM BOTTLE TP SCH (08:46)
--- NOTE | 2020-01-01 10:36 | NUR ---
Social Work Firearms Report: Seeing Eye Dog Trainer completed and submitted a [employer] firearms report for 5250 grave disability certification. A copy of report has been placed in patient chart.
--- NOTE | 2020-01-01 10:37 | NUR ---
Social Work Discharge Note: Patient will be discharged to [facility] [address] [place] [address]; ([phone]). Patients nicki Simpson ([phone]) will burr picker patient around 1-2PM. LAKSHMI spoke with Oralia thimble press operator of the assisted living, ([phone]) at the facility who states they are ready to accept the patient back today. Patient is aware and agreeable with discharge plans. Patients manojdean Calvin ([phone]) is agreeable with discharge plan. Patient is alert and oriented x3, is unable to plan for self-care, but agrees to receiving care at the facility. Patient denies any suicidal or homicidal ideations. Patient will follow-up at the facility with Dr. Ellington (Designer Architect) who will follow up with patient and will prescribe psychotropic medication. Per Oralia, a psychiatrist at the facility will evaluate patient upon arrival at the facility. Patient presents with euthymic mood and congruent affect.
--- NOTE | 2020-01-01 14:15 | NUR ---
received discharge order to assisted living via private car with nicki Simpson. Discharge instruction given with medication prescription with education of risk and benefits of medications. no acute distress noted, no SOB noted at this time. belonging accounted for and signed. questions and concern addressed. escorted patient via wheelchair out the facility.
== END 2020-01-01 14:26 | DRG 885 ==
LOC: GPS 17:33
PROVIDERS: ADMIT Psychiatry & Neurology Psychiatry
DX: F29 Unspecified psychosis not due to a substance or known physiological condition (principal); F03.91 Unspecified dementia, unspecified severity, with behavioral disturbance; F23 Brief psychotic disorder; B49 Unspecified mycosis; I25.10 Atherosclerotic heart disease of native coronary artery without angina pectoris; M81.0 Age-related osteoporosis without current pathological fracture; E78.5 Hyperlipidemia, unspecified; I10 Essential (primary) hypertension; G62.9 Polyneuropathy, unspecified; I25.2 Old myocardial infarction; M19.90 Unspecified osteoarthritis, unspecified site; Z87.891 Personal history of nicotine dependence; Z86.19 Personal history of other infectious and parasitic diseases; R73.03 Prediabetes
CPT/HCPCS: 36415